=== PATIENT | male | born 1985 | race Two or more races ===

== ENCOUNTER 2022-11-24 11:01 | Emergency (ER) | payer MEDICAID ==
[~2022-11-24] VITALS: Ht 172.7 cm; Wt 68.0 kg
[2022-11-24 11:45] LABS: Basophils # (auto) 0 10 ^3/uL (0-0.2); Basophils % (auto) 0.3 % (0.0-2.0); Eosinophils # (auto) 0.1 10 ^3/uL (0-0.8); Eosinophils % (auto) 1.2 % (0.0-7.0); Hematocrit 43.5 % (41.0-53.0); Hemoglobin 14.8 g/dL (13.5-17.5); Lymphocytes % (auto) 17.1 % (10.0-50.0); Mean Corpuscular Hemoglobin 29.2 pg (28.0-32.0); Mean Corpuscular Volume 85.9 fL (80.0-100.0); Monocytes # (auto) 1.4 10 ^3/uL (0-1.3); Monocytes % (auto) 11.7 % (0.0-12.0); Neutrophils % (auto) 69.7 % (37.0-80.0); Red Blood Cells 5.06 10^6/uL (4.5-5.90); White Blood Cell 11.5 10^3/uL (4.4-10.8)
[2022-11-24 11:55] LABS: Urine Bacteria FEW /hpf (None Seen); Urine Blood Negative /uL (Negative); Urine Mucus FEW (None Seen); Urine Specific Gravity 1.028 (1.001-1.035); Urine WBC 1 /hpf (0 - 3)
[2022-11-24 12:05] LABS: Albumin 4.2 g/dL (3.4-5.0); BUN/Creatinine Ratio 12.4 (10.0-20.0); Calcium 9.2 mg/dL (8.5-10.1); Potassium 3.8 mmol/L (3.5-5.1)
[2022-11-24 12:06] LABS: Salicylate < 1.7 mg/dL (2.8-20.0)
[2022-11-24 12:08] LABS: Bilirubin, Total 0.5 mg/dL (0.2-1.0); Total Protein 8.5 g/dL (6.4-8.2)
[2022-11-24 12:09] LABS: Acetaminophen < 2.0 ug/mL (10-30)
[2022-11-24 12:12] LABS: Alcohol, Urine < 3.0 mg/dL (0-10); Amphetamine Screen, Urine POSITIVE (NEGATIVE); Barbiturate Scree,Urine NEGATIVE (NEGATIVE); Benzodiazephine Screen, Urine NEGATIVE (NEGATIVE); Cannabinoid Screen, Urine NEGATIVE (NEGATIVE); Cocaine Screen, Urine NEGATIVE (NEGATIVE); Opiate Scree,Urine NEGATIVE (NEGATIVE); Phencyclidine Screen, Urine NEGATIVE (NEGATIVE)
[2022-11-24] MEDS ORDERED: QUEtiapine FUMARATE 25 MG TAB PO PRN (15:45)
[2022-11-24] MEDS ORDERED: hydrOXYzine 25 MG TAB or CAP PO PRN (15:45)
[2022-11-24] MEDS ORDERED: levETIRAcetam 500 MG TAB PO ONE ×2 (21:00→21:15)
[2022-11-24] MEDS: QUEtiapine FUMARATE 25 MG TAB PO SCH (21:21)
[2022-11-25] MEDS ORDERED: levETIRAcetam 500 MG TAB PO SCH (10:00)
[2022-11-25] MEDS: levETIRAcetam 500 MG TAB PO SCH (10:35)
[2022-11-25] MEDS ORDERED: IBUPROFEN 600 MG TAB PO ONE (13:15)
[2022-11-25] MEDS ORDERED: ACETAMINOPHEN 325 MG TAB PO ONE (21:15)
[2022-11-25] MEDS: QUEtiapine FUMARATE 25 MG TAB PO SCH (22:33)
[2022-11-26] MEDS ORDERED: NALOXONE HCL 1MG/ML 2ML SYRINGE IV ONE (02:00)
[2022-11-26] MEDS: NALOXONE HCL 1MG/ML 2ML SYRINGE IV ONE ×2 (02:00→02:01)
[2022-11-26] MEDS: levETIRAcetam 500 MG TAB PO SCH (10:12)
[2022-11-28] MEDS ORDERED: QUEtiapine FUMARATE 25 MG TAB PO PRN (00:15)
[2022-11-28] MEDS ORDERED: QUEtiapine FUMARATE 25 MG TAB PO ONE (00:15)
[2022-11-28] MEDS ORDERED: levETIRAcetam 500 MG TAB PO ONE (00:15)
[2022-11-28] MEDS ORDERED: hydrOXYzine 25 MG TAB or CAP PO PRN (00:15)
[2022-11-28] MEDS ORDERED: QUEtiapine FUMARATE 25 MG TAB PO SCH ×2 (01:45→22:00)
[2022-11-28] MEDS ORDERED: levETIRAcetam 500 MG TAB PO SCH ×2 (01:45→10:00)
[2022-11-28 07:30] VITALS: BP 114/62
== END 2022-11-27 04:31 | disposition short-term general hospital (02) ==
LOC: ER 11:01
DX: F20.0 Paranoid schizophrenia (principal); G40.909 Epilepsy, unspecified, not intractable, without status epilepticus; F15.10 Other stimulant abuse, uncomplicated; F11.10 Opioid abuse, uncomplicated; F32.9 Major depressive disorder, single episode, unspecified; F41.9 Anxiety disorder, unspecified; Z59.00 Homelessness unspecified
CPT/HCPCS: 36415; 80053; 80307; 80329; 81001; 85025; 96374; 96375; 99285; J2310